=== PATIENT | female | born 2000 | race Caucasian/White ===

== ENCOUNTER 2021-12-08 21:48 | Emergency (ER) | payer BC ==
[~2021-12-08] VITALS: Ht 172 cm; Wt 139.6 kg
[2021-12-08 21:55] VITALS: BP 142/104
--- NOTE | 2021-12-08 22:51 | ED Upper Extremity ---
General Chief Complaint: Upper Extremity Stated Complaint: SHOULDER PAIN Nursing Triage Note: pt presents with c/o left shoulder pain x3days. reports pain is intermittent and worse with deep breathing. reports location of pain on the top/front of her shoulder. denies pain in her back. denies known injury to area. Source: patient Exam Limitations: no limitations (MARYCRUZ ANDRADE APRN) History of Present Illness Date Seen by Provider: Dec 08, 2021 Time Seen by Provider: 22:30 Initial Comments This is a well-appearing 21-year-old female who presented to the ER for complaints of left shoulder pain x3 days. States pain is intermittent, sharp and stabbing in nature. States that occasionally it will be associated with deep breathing however this is not always the case. States the pain is in the front of her shoulder but is "deep in her shoulder". Has been taking ibuprofen, ice packs with no relief. No known falls or injury to the affected shoulder. Denies overuse. No fever, chills, cough, shortness of breath, chest pain, nausea, vomiting, abdominal pain at this time. (MARYCRUZ ANDRADE APRN) Allergies and Home Medications Allergies Coded Allergies: No Known Drug Allergies (Unverified , 12/08/21) Patient Home Medication List Home Medication List Reviewed: Yes (MARYCRUZ ANDRADE APRN) Prednisone (Prednisone) 20 Mg Tab, 20 MG PO DAILY Prescribed by: MARYCRUZ ANDRADE on 12/08/21 2320 Review of Systems Constitutional: no symptoms reported EENTM: no symptoms reported Respiratory: no symptoms reported Cardiovascular: no symptoms reported Gastrointestinal: no symptoms reported Genitourinary: no symptoms reported Musculoskeletal: see HPI Skin: no symptoms reported Psychiatric/Neurological: No Symptoms Reported (MARYCRUZ ANDRADE APRN) Past Dilmhus-Vghjmb-Olndpk Hx Patient Social History Tobacco Use?: No Substance use?: No Alcohol Use?: No Pt feels they are or have been: No (MARYCRUZ ANDRADE APRN) Immunizations Up To Date Influenza Vaccine Up-to-Date: No; Not Current First/Initial COVID19 Vaccinat: unknown date Second COVID19 Vaccination Sourav: unknown date (MARYCRUZ ANDRADE APRN) Past Medical History Last Menstrual Period: Dec 07, 2021 (MARYCRUZ ANDRADE APRN) Physical Exam Vital Signs Vital Signs - First Documented 12/08/21 21:55 Temp 35.9 Pulse 94 Resp 20 B/P (MAP) 142/104 (117) Pulse Ox 98 O2 Delivery Room Air (KRAIG,LILIANE K DO) Vital Signs Capillary Refill : (MARYCRUZ ANDRADE [employer] WORK[employer]) Height, Weight, BMI Height: '" Weight: lbs. oz. kg; 47.00 BMI Method: General Appearance: WD/WN, no apparent distress HEENT: PERRL/EOMI, normal ENT inspection, TMs normal, pharynx normal Neck: full range of motion, normal inspection Cardiovascular: regular rate, rhythm, no murmur Respiratory: lungs clear, normal breath sounds, no respiratory distress, no accessory muscle use Gastrointestinal: normal bowel sounds, non tender, soft Shoulder: normal inspection, no evidence of injury, normal ROM, soft tissue tenderness (left anterior shoulder ) Elbow/Forearm: normal inspection, non-tender, no evidence of injury, normal ROM Hand: normal inspection, non-tender, no evidence of injury, normal ROM Neurologic/Tendon: normal sensation, normal motor functions, normal tendon functions Neurologic/Psychiatric: no motor/sensory deficits, alert, normal mood/affect, oriented x 3 Skin: normal color, warm/dry (MARYCRUZ ANDRADE [employer] WORKER) Progress/Results/Core Measures Results/Orders Medications Given in ED Current Medications Medications Dose Ordered Sig/Armani Route Start Time Stop Time Status Last Admin Dose Admin Prednisone 20 mg ONCE ONCE PO 12/08/21 23:30 12/08/21 23:31 DC 12/08/21 23:24 20 MG (KRAIG,LILIANE K DO) Vital Signs/I&O 12/08/21 21:55 Temp 35.9 Pulse 94 Resp 20 B/P (MAP) 142/104 (117) Pulse Ox 98 O2 Delivery Room Air (KRAIG,LILIANE K DO) Blood Pressure Mean: 117 Progress Progress Note : Progress Note Patient examined and in no acute distress. Has a wide variety of complaints, her pain is intermittent, sometimes associated with breathing sometimes not, sometimes associated with movement sometimes not. States whenever she is thinking about her breathing her pain is not really there, however when she takes a deep breath it returns. Has taken ibuprofen with no improvement of symptoms. Performed full range of motion exam and reported no tenderness with movements. States that the pain feels deeper in nature however was not elicited by any movement. Unsure of what to make of shoulder pain, given her hydrocodone for pain relief this evening. Could represent a form of bursitis, versus impingement. She has no erythema, fever, or swelling which is reassuring this is not a septic joint. Will start with conservative treatment and have her follow up with her primary care provider for any persistent symptoms. (MARYCRUZ ANDRADE APRN) Diagnostic Imaging Diagonstic Imaging: Xray Comments [facility], [place] NAME: RADHA SMITH [facility] REC#: [id number] PT STATUS: REG ER : 2000 PHYSICIAN: MARYCRUZ ANDRADE APRN ADMIT DATE: 12/08/21/ER Signed Date of Exam:12/08/21 SHOULDER, LEFT, 3 VIEWS Indication: Left shoulder pain 3 views of the left shoulder show no fracture, dislocation or other acute abnormalities. IMPRESSION: Negative left shoulder Dictated by: Dictated on workstation # [id number] Dict: 12/08/212312 Trans: 12/08/212312 TCB [id number] Interpreted by: NOLAN RUBI MD Electronically signed by: NOLAN RUBI MD 12/08/212312 (MARYCRUZ ANDRADE APRN) Departure Impression Primary Impression: Shoulder joint pain Disposition: 01 HOME, SELF-CARE Condition: Stable Departure-Patient Inst. Decision time for Depature: 23:09 (MARYCRUZ ANDRADE APRN) Patient Instructions: Shoulder Pain (DC) Add. Discharge Instructions: Plan: 1. Continue ice and heat for 20 minutes at a time. 2. Avoid any heavy lifting or pulling. 3. Take Ibuprofen 600mg by mouth every 6 hours as needed with food. 4. Take steroids daily as directed. 5. Follow up with your primary care provider for any persistent symptoms. All discharge instructions reviewed with patient and/or family. Voiced understanding. Scripts Prednisone (Prednisone) 20 Mg Tab 20 MG PO DAILY for 4 Days, #4 TAB 0 Refills Prov: MARYCRUZ ANDRADE APRN 12/08/21 ATTENDING PHYSICIAN NOTE: I WAS PHYSICALLY PRESENT ER PHYSICIAN, BUT I WAS NOT INVOLVED IN ANY DECISION MAKING OR ANY CARE OF THIS PATIENT. (LILIANE CORNELL STORMY D APRN Dec 08, 2021 22:51 LILIANE CORNELL DO Dec 09, 2021 05:18
--- NOTE | 2021-12-08 23:15 | Diagnostic Imaging Report ---
Indication: Left shoulder pain 3 views of the left shoulder show no fracture, dislocation or other acute abnormalities. IMPRESSION: Negative left shoulder Dictated by: Dictated on workstation # [id number]
[2021-12-08] MEDS ORDERED: PRD20T PO (23:20)
[2021-12-08] MEDS ORDERED: predniSONE 20 MG TAB PO ONE (23:30)
== END 2021-12-08 23:25 | disposition home or self-care (01) ==
LOC: ER 21:51
DX: M25.512 Pain in left shoulder (principal)
CPT/HCPCS: 73030; 99283